=== PATIENT | female | born 1950 | race Caucasian/White ===

== ENCOUNTER 2016-09-13 17:05 | Emergency (ER) | payer OTHER ==
--- NOTE | ~2016-09-13 | CR63 ---
[facility] A Service of [facility] RADIOLOGY TEXT RESULTS PATIENT: ARIC SMITH LOCATION: CFTX : 52 UNIT #: [id number] AGE: [address]: Telma Vann APRN SEX: F ORDER DR: [id number] [facility] [address] [place], [place] [address] [id number] E MR#: [id number] Acc #: [id number] NAME: ARIC SMITH : 1950 SEX: F STUDY DATE/TIME: 09/13/2016 15:53 UNIT: [facility] ROOM: STUDY DESCRIPTION: CR Chest 2 View Attending Physician: Telma Vann A.P.R.N. Ordering Physician: Ed Rajinder Overton M.D. Primary Care Physician: Steve Mccollum Jr., M.D. MEDICAL IMAGING REPORT This report is preliminary unless electronic signature is present EXAM Chest PA and lateral 09/13 COMPARISON 11/13/2012 HISTORY Cough, shortness of breath for 3 weeks, fever FINDINGS PA and lateral views of the chest are obtained. Heart size is normal. Vascular pattern is normal. Lungs are clear. CONCLUSION 1. Stable chest. No active disease. Dictated by... Shimon Montesinos M.D. THIS IS AN ELECTRONICALLY VERIFIED REPORT Shimon Montesinos M.D. at 09/18/2016 7:58 AM LONG/jenny TD: 09/14/2016 01:22 JOB #: [id number] MEDICAL IMAGING REPORT COPY
--- NOTE | ~2016-09-13 | EKG ---
PATIENT: ARIC SMITH UNIT #: [id number] Ventricular Rate: 89 BPM Atrial Rate: 89 BPM P-R Interval: 150 ms QRS Duration: 94 ms Q-T Interval: 354 ms QTC Calculation(Bezet): 430 ms P [place]: 71 degrees Calculated R [place]: 42 degrees Calculated T [place]: 73 degrees Diagnosis Line: Normal sinus rhythm Diagnosis Line: Incomplete right bundle branch block Diagnosis Line: Otherwise normal ECG Diagnosis Line: When compared with ECG of 13-NOV-2012 11:49, Diagnosis Line: Premature ventricular complexes are no longer Diagnosis Line: Present Diagnosis Line: Minimal criteria for Inferior infarct are no Diagnosis Line: longer Present Diagnosis Line: QT has shortened Diagnosis Line: Confirmed by AURA PEREZ MD ([id number]) on 09/13/2016 Diagnosis Line: 4:48:33 PM INTERPRETING MD: ANA MARTINEZ
[2016-09-13 16:15] LABS: INFLUENZA A POS (NEG); INFLUENZA B NEG (NEG)
[2016-09-13 17:03] LABS: POC - CKMB 1.9 ng/mL (0.0-7.9); POC - TROPONIN <0.05 ng/mL (<=0.05)
[2016-09-13 17:08] LABS: BASOPHIL% 0.3 % (0-2.5); EOSINOPHIL% 0.1 % (0.0-7.0); HEMATOCRIT 35.8 % (35.0-45.0); HEMOGLOBIN 12.2 gm/dL (12.0-16.0); LYMPHOCYTE# 1.1 X10e3 (1.0-3.5); LYMPHOCYTE% 10.2 % (17.0-45.0); MEAN CELL VOLUME 104.1 FL (83-96); MEAN CORPUSCULAR HEMOGLOBIN 35.5 PG (28-34); MEAN CORPUSCULAR HGB CONC 34.1 g/dL (30-36); MEAN PLATELET VOLUME 8.8 FL (6.5-11.5); MONOCYTE# 0.5 X10e3 (0-1.0); MONOCYTE% 4.4 % (3.0-12.0); NEUTROPHIL# 9.4 X10e3 (1.5-7.1); PLATELET COUNT 275 X10e3 (140-420); RED BLOOD COUNT 3.44 X10e (3.90-5.30); RED CELL DISTRIBUTION WIDTH 12.2 % (11.0-15.5); WHITE BLOOD COUNT 11.1 X10e3 (4.0-10.5)
[2016-09-13 17:11] LABS: DIFF IND YES
[2016-09-13 17:27] LABS: PLATELET ESTIMATE NORMAL (NORMAL)
[2016-09-13 17:28] LABS: ANISOCYTOSIS SL
[2016-09-13 17:37] LABS: ALBUMIN SERUM 3.7 g/dL (3.5-5.0); BILIRUBIN,TOTAL 0.4 mg/dL (0.2-2.0); GLOM FILT RATE Estimated 59.1 mL/min (>60); POTASSIUM 3.7 mmol/L (3.5-5.1); PROTEIN TOTAL SERUM 6.9 g/dL (6.0-8.3)
[2016-09-13 17:38] LABS: CALCIUM SERUM 8.3 mg/dL (8.4-10.2)
== END 2016-09-13 18:42 | disposition home or self-care (01) ==
LOC: CFTX 17:05
PROVIDERS: Nurse Practitioner
DX: J44.1 Chronic obstructive pulmonary disease with (acute) exacerbation (principal); J10.1 Influenza due to other identified influenza virus with other respiratory manifestations; I10 Essential (primary) hypertension; Z85.3 Personal history of malignant neoplasm of breast; F41.9 Anxiety disorder, unspecified; Z90.49 Acquired absence of other specified parts of digestive tract
CPT/HCPCS: 36415; 71020; 80053; 82553; 83880; 84484; 85025; 87651; 87804; 93005; 94640; 99283